=== PATIENT | female | born 1990 | race Two or more races ===

== ENCOUNTER 2019-06-23 08:57 | Outpatient (CLI) | payer OTHER | END 2019-06-23 10:00 | disposition home or self-care (01) | LOC: PRENATAL 08:57 | DX: Z36.89 Encounter for other specified antenatal screening (principal); Z34.02 Encounter for supervision of normal first pregnancy, second trimester ==

== ENCOUNTER → 2019-09-09 | Outpatient (CLI) | payer OTHER | END | disposition home or self-care (01) | LOC: PRENATAL 10:00 | DX: O26.842 Uterine size-date discrepancy, second trimester (principal) ==

== ENCOUNTER 2019-11-01 00:05 | Inpatient (IN) | payer OTHER ==
[~2019-11-01] VITALS: Ht 162.6 cm; Wt 73.9 kg
[2019-11-01] MEDS ORDERED: PRENATAL TABLE1 EAC1 PO (01:32)
== END 2019-11-03 12:12 | disposition home or self-care (01) | DRG 807 ==
LOC: LDR 00:05 → OB/GYN 00:05
PROVIDERS: ADMIT Obstetrics & Gynecology
PROC: 10E0XZZ Delivery of Products of Conception, External Approach (ICD-10-PCS; principal; 2019-11-01)
PROC: 0KQM0ZZ Repair Perineum Muscle, Open Approach (ICD-10-PCS; 2019-11-01)
PROC: 10907ZC Drainage of Amniotic Fluid, Therapeutic from Products of Conception, Via Natural or Artificial Opening (ICD-10-PCS; 2019-11-01)
PROC: 3E033VJ Introduction of Other Hormone into Peripheral Vein, Percutaneous Approach (ICD-10-PCS; 2019-11-01)
PROC: 4A1HXCZ Monitoring of Products of Conception, Cardiac Rate, External Approach (ICD-10-PCS; 2019-11-01)
DX: O70.1 Second degree perineal laceration during delivery (principal); Z37.0 Single live birth; Z3A.38 38 weeks gestation of pregnancy

== ENCOUNTER 2024-07-01 10:45 | Outpatient (CLI) | payer OTHER ==
[~2024-07-01 10:45] MED LIST: PRENATAL TABLE1 EAC1 PO
== END 2024-07-01 10:48 | disposition home or self-care (01) ==
LOC: PRENATAL 10:45
PROVIDERS: ATTEND Obstetrics & Gynecology Maternal & Fetal Medicine
DX: O36.80X0 Pregnancy with inconclusive fetal viability, not applicable or unspecified (principal); Z36.82 Encounter for antenatal screening for nuchal translucency; Z36.9 Encounter for antenatal screening, unspecified

== ENCOUNTER → 2024-08-17 10:36 | Outpatient (CLI) | payer OTHER | END | disposition home or self-care (01) | LOC: PRENATAL 10:36 | PROVIDERS: ATTEND Obstetrics & Gynecology Maternal & Fetal Medicine | DX: O35.3XX0 Maternal care for (suspected) damage to fetus from viral disease in mother, not applicable or unspecified (principal); O44.00 Complete placenta previa NOS or without hemorrhage, unspecified trimester; Z3A.20 20 weeks gestation of pregnancy ==

== ENCOUNTER → 2024-11-07 10:21 | Outpatient (CLI) | payer OTHER | END | disposition home or self-care (01) | LOC: PRENATAL 10:21 | PROVIDERS: ATTEND Obstetrics & Gynecology Maternal & Fetal Medicine | DX: O26.849 Uterine size-date discrepancy, unspecified trimester (principal); O36.8199 Decreased fetal movements, unspecified trimester, other fetus; Z3A.32 32 weeks gestation of pregnancy ==

== ENCOUNTER 2024-12-21 14:30 | Inpatient (IN) | payer OTHER ==
[~2024-12-21] VITALS: Ht 162.6 cm; Wt 80.7 kg
[2024-12-21 16:17] LABS: HEMATOCRIT 37.9 % (36.0-45.00); HEMOGLOBIN 12.2 g/dL (12.0-15.00); MEAN CELL VOLUME 93.9 fL (80.00-100.00); MEAN CORPUSCULAR HEMOGLOBIN 30.4 pg (27.00-32.0); MEAN CORPUSCULAR HGB CONC 32.4 g/dl (32.0-36.0); PLATELET COUNT 235 K/uL (150-450); RED BLOOD COUNT 4.03 M/uL (4.00-6.00)
[2024-12-21 16:35] LABS: INR 0.94; PARTIAL THROMBOPLASTIN TIME 29.3 SECONDS (22.0-34.0); PROTHROMBIN TIME 10.3 SECONDS (9.0-11.5)
[2024-12-21 16:39] LABS: ALBUMIN 2.6 gm/dL (3.4-5.0); BILIRUBIN TOTAL 0.48 mg/dL (0.3-1.2); CALCIUM 8.5 mg/dL (8.5-10.1); CREATININE SERUM 0.49 mg/dL (0.55-1.02); GFR 143.72; POTASSIUM 4.22 mEq/L (3.5-5.1); TOTAL PROTEIN 6.6 gm/dL (6.4-8.2)
[2025-01-03] VITALS (10 sets, daily range): BP systolic 96–117; BP diastolic 66–80
[2025-01-03] MEDS ORDERED: RINGERS SOLUTION,LACTATED 1,000 ML IV SCH (12:00)
[2025-01-03 13:31] LABS: HEMATOCRIT 39.8 % (36.0-45.00); HEMOGLOBIN 12.9 g/dL (12.0-15.00); MEAN CELL VOLUME 94.6 fL (80.00-100.00); MEAN CORPUSCULAR HEMOGLOBIN 30.7 pg (27.00-32.0); MEAN CORPUSCULAR HGB CONC 32.4 g/dl (32.0-36.0); PLATELET COUNT 229 K/uL (150-450); RED BLOOD COUNT 4.21 M/uL (4.00-6.00); RED CELL DISTRIBUTION WIDTH 14.7 % (11.5-14.5)
[2025-01-03 13:38] LABS: URINE APPEARANCE Clear; URINE BILIRRUBIN Negative (NEGATIVE); URINE BLOOD Moderate; URINE COLOR Yellow; URINE GLUCOSE Negative (NEGATIVE); URINE KETONE Negative (NEGATIVE); URINE LEUKOCYTE Negative; URINE NITRATE Negative; URINE PROTEIN Trace (NEGATIVE)
[2025-01-03 13:42] LABS: URINE BACTERIA 438.1 uL (0.0-1933); URINE EPITHELIAL CELLS 51.7 uL (0.0-38.8); URINE RBC 2.6 uL (0.0-20.8); URINE WBC 6.9 uL (0.0-23.2)
[2025-01-03 14:01] LABS: INR < 0.93; PARTIAL THROMBOPLASTIN TIME 29.3 SECONDS (22.0-34.0); PROTHROMBIN TIME 10.1 SECONDS (9.0-11.5)
[2025-01-03 14:15] LABS: URINE CAST 0.14 uL (0.0-1.40)
[2025-01-03 14:42] LABS: ALBUMIN 2.6 gm/dL (3.4-5.0); BILIRUBIN TOTAL 0.54 mg/dL (0.3-1.2); CALCIUM 8.6 mg/dL (8.5-10.1); CREATININE SERUM 0.56 mg/dL (0.55-1.02); GFR 123.19; POTASSIUM 4.24 mEq/L (3.5-5.1); TOTAL PROTEIN 6.6 gm/dL (6.4-8.2)
[2025-01-03] MEDS ORDERED: OXYTOCIN 20 UNITS/500ML RL PIGGYBAG IV SCH (16:15)
[2025-01-03] MEDS ORDERED: MEPERIDINE HCL/PF 25 MG/ML VIAL IV STA (17:52)
[2025-01-03] MEDS ORDERED: PROMETHAZINE HCL 25 MG/ML AMPUL IV STA (17:52)
[2025-01-03] MEDS ORDERED: LIDOCAINE HCL 1% 10ML VIAL ONE (18:38)
[2025-01-03] MEDS ORDERED: CHLORHEXIDINE GLUCONATE 120 ML BOTTLE TOP ONE (18:38)
[2025-01-03] MEDS ORDERED: ERYTHROMYCIN BASE OPHT 1GM EACH TUBE OP ONE ×2 (18:38→21:15)
[2025-01-03] MEDS ORDERED: OXYTOCIN 20 UNITS/1000ML RL PIGGYBAG IV ONE (18:38)
[2025-01-03] MEDS ORDERED: CHLORHEXIDINE GLUCONATE 120 ML BOTTLE TP SCH (19:30)
[2025-01-03] MEDS ORDERED: OXYTOCIN 1,000 ML IV SCH (19:30)
[2025-01-03] MEDS ORDERED: DOCUSATE SODIUM 100MG CAP PO SCH (19:31)
[2025-01-03] MEDS ORDERED: LIDOCAINE HCL 1% 10ML VIAL IJ ONE (21:15)
[2025-01-04 00:12] VITALS: BP 114/76
[2025-01-04 08:00] VITALS: BP 106/70
[2025-01-04] MEDS ORDERED: IBUprofen 800 MG TABLET PO PRN (09:00)
[2025-01-04 11:37] LABS: HEMATOCRIT 29.2 % (36.0-45.00); MEAN CELL VOLUME 91.6 fL (80.00-100.00); MEAN CORPUSCULAR HEMOGLOBIN 32.6 pg (27.00-32.0); MEAN CORPUSCULAR HGB CONC 35.6 g/dl (32.0-36.0); PLATELET COUNT 197 K/uL (150-450); RED BLOOD COUNT 3.19 M/uL (4.00-6.00); RED CELL DISTRIBUTION WIDTH 14.4 % (11.5-14.5)
[2025-01-04 11:43] LABS: HEMOGLOBIN 10.4 g/dL (12.0-15.00)
[2025-01-04 16:00] VITALS: BP 122/80
[2025-01-05] VITALS: BP 93/62
[2025-01-05 08:27] VITALS: BP 105/72
== END 2025-01-05 19:48 | disposition home or self-care (01) | DRG 807 ==
LOC: LDR 01-03 11:46 → OB/GYN 01-03 14:30 → LDR 01-03 16:53 → OB/GYN 01-03 19:33
PROVIDERS: Obstetrics & Gynecology; ADMIT General Practice; ATTEND General Practice
PROC: 10E0XZZ Delivery of Products of Conception, External Approach (ICD-10-PCS; principal; 2025-01-03)
PROC: 0KQM0ZZ Repair Perineum Muscle, Open Approach (ICD-10-PCS; 2025-01-03)
PROC: 4A1HXCZ Monitoring of Products of Conception, Cardiac Rate, External Approach (ICD-10-PCS; 2025-01-03)
DX: O70.1 Second degree perineal laceration during delivery (principal); Z37.0 Single live birth; Z3A.40 40 weeks gestation of pregnancy

== ENCOUNTER → 2025-01-03 | Outpatient (CLI) | payer OTHER | END | disposition home or self-care (01) | LOC: NST 10:43 | PROVIDERS: ATTEND General Practice | DX: Z3A.40 40 weeks gestation of pregnancy (principal) ==